=== PATIENT | female | born 1945 | race Caucasian/White ===

== ENCOUNTER → 2018-04-04 | Outpatient (CLI) | payer MEDICARE ==
[~2018-04-04] MED LIST: DAPSONE25 MG PO; HYDROCHLOROQUINE PO; IRBESARTAN300 MG PO; LUTEIN20 MG PO; PRENATAL PO; PRILOSEC 20 MG20 MG PO; VIBERZI100 MG PO; VITAMIN D1000 UNI1 PO
== END ==
LOC: M.RAD 10:49
DX: Z12.31 Encounter for screening mammogram for malignant neoplasm of breast (principal)